=== PATIENT | female | born 1965 | race Asian ===

== ENCOUNTER 2019-02-04 21:28 | Emergency (ER) | payer OTHER ==
[~2019-02-04] VITALS: Ht 172.7 cm; Wt 83.9 kg
[2019-02-04 21:44] VITALS: BP 149/99; Ht 172.7 cm; Wt 83.9 kg
== END 2019-02-05 00:40 | disposition home or self-care (01) ==
LOC: ED 21:28
DX: S81.851A Open bite, right lower leg, initial encounter (principal); I10 Essential (primary) hypertension; E11.9 Type 2 diabetes mellitus without complications; Z85.3 Personal history of malignant neoplasm of breast; Z90.710 Acquired absence of both cervix and uterus; W54.0XXA Bitten by dog, initial encounter; Y93.89 Activity, other specified; Y92.89 Other specified places as the place of occurrence of the external cause; Y99.8 Other external cause status
CPT/HCPCS: 90715

== ENCOUNTER 2019-02-10 18:00 | Inpatient (IN) | payer OTHER ==
[~2019-02-10] VITALS: Ht 172.7 cm; Wt 82.4 kg
[2019-02-10 18:24] VITALS: Ht 172.7 cm; Wt 82.4 kg
[2019-02-10 19:57] LABS: microscopic required? NO
[2019-02-10 20:04] LABS: BASOPHIL % 0.3 % (0-2); PLATELET COUNT 299 x10^3mcL (130-400); RED CELL DISTRIBUTION WIDTH 13.5 % (11.5-14.5)
[2019-02-10 20:05] LABS: UA SPECIFIC GRAVITY <=1.005 (1.005-1.035); urine erythrocyte NEGATIVE (NEGATIVE)
[2019-02-10 20:11] LABS: CALCIUM 10.1 mg/dL (8.5-10.1); CARBON DIOXIDE 25.5 mmol/L (21-32); CHLORIDE SERUM 100 mmol/L (98-107); CREATININE SERUM 0.9 mg/dL (0.6-1.0); GFR1 > 60 mL/min; GLUCOSE SERUM 118 mg/dL (74-106); POTASSIUM SERUM 3.7 mmol/L (3.5-5.1); SODIUM SERUM 139 mmol/L (136-145)
[2019-02-10 20:16] LABS: ALBUMIN 4.3 g/dL (3.4-5.0); ALKALINE PHOSPHATASE 121 U/L (46-116); ALT/SGPT 55 U/L (14-59); AST/SGOT 22 U/L (15-37); BILIRUBIN TOTAL 0.73 mg/dL (0.20-1.00)
[2019-02-10 20:17] LABS: TOTAL PROTEIN, SERUM 8.4 g/dL (6.4-8.2)
[2019-02-10 21:18] LABS: PHOSPHOROUS 4.3 mg/dL (2.5-4.9)
[2019-02-10 21:19] LABS: CHOLESTEROL/HDL RATIO 4.4
[2019-02-10 21:45] VITALS: BP 161/79
[2019-02-10] MEDS ORDERED: METFORMIN HCL1000 MG PO (22:37)
[2019-02-10] MEDS ORDERED: GLIPIZIDE2.5 M1 PO (22:47)
[2019-02-10] MEDS ORDERED: LOSARTAN POTASS50 M1 PO (22:47)
[2019-02-10] MEDS ORDERED: VENLAFAXINE HYD75 MG PO (22:48)
[2019-02-10] MEDS ORDERED: SIMVASTATIN10 M1 PO (22:48)
[2019-02-10] MEDS ORDERED: LEVOTHYROXINE0.1 M2 PO (22:49)
[2019-02-10] MEDS ORDERED: NOR5 PO (22:49)
[2019-02-11] VITALS (7 sets, daily range): BP systolic 120–148; BP diastolic 71–101
[2019-02-11 07:13] LABS: BASOPHIL % 0.5 % (0-2); PLATELET COUNT 278 x10^3mcL (130-400); RED CELL DISTRIBUTION WIDTH 13.6 % (11.5-14.5)
[2019-02-11 07:40] LABS: CALCIUM 9.3 mg/dL (8.5-10.1); CARBON DIOXIDE 25.2 mmol/L (21-32); CHLORIDE SERUM 104 mmol/L (98-107); CREATININE SERUM 0.8 mg/dL (0.6-1.0); GFR1 > 60 mL/min; GLUCOSE SERUM 118 mg/dL (74-106); POTASSIUM SERUM 3.5 mmol/L (3.5-5.1); SODIUM SERUM 141 mmol/L (136-145)
[2019-02-12 05:48] VITALS: BP 123/74
[2019-02-12 06:25] LABS: BASOPHIL % 0.4 % (0-2); PLATELET COUNT 297 x10^3mcL (130-400); RED CELL DISTRIBUTION WIDTH 13.9 % (11.5-14.5)
[2019-02-12 06:37] LABS: CALCIUM 9.4 mg/dL (8.5-10.1); CARBON DIOXIDE 25.4 mmol/L (21-32); CHLORIDE SERUM 101 mmol/L (98-107); CREATININE SERUM 0.8 mg/dL (0.6-1.0); GFR1 > 60 mL/min; GLUCOSE SERUM 118 mg/dL (74-106); PHOSPHOROUS 4.5 mg/dL (2.5-4.9); POTASSIUM SERUM 3.6 mmol/L (3.5-5.1); SODIUM SERUM 139 mmol/L (136-145)
[2019-02-12 09:48] VITALS: BP 117/67
[2019-02-12 16:31] VITALS: BP 126/84
[2019-02-12 20:57] VITALS: BP 125/85
[2019-02-13 05:10] VITALS: BP 121/70
[2019-02-13 07:38] LABS: BASOPHIL % 0.6 % (0-2); PLATELET COUNT 332 x10^3mcL (130-400); RED CELL DISTRIBUTION WIDTH 13.7 % (11.5-14.5)
[2019-02-13 07:51] LABS: CALCIUM 9.8 mg/dL (8.5-10.1); CARBON DIOXIDE 22.3 mmol/L (21-32); CHLORIDE SERUM 101 mmol/L (98-107); CREATININE SERUM 0.8 mg/dL (0.6-1.0); GFR1 > 60 mL/min; GLUCOSE SERUM 111 mg/dL (74-106); POTASSIUM SERUM 3.7 mmol/L (3.5-5.1); SODIUM SERUM 137 mmol/L (136-145)
[2019-02-13 09:00] VITALS: BP 126/77
[2019-02-13] MEDS ORDERED: CLEOCIN HCL300 MG PO (13:42)
[2019-02-13 13:57] VITALS: BP 126/77
== END 2019-02-13 15:20 | disposition home or self-care (01) | DRG 383 ==
LOC: ED 18:00 → MU 20:44
PROVIDERS: Emergency Medicine; Internal Medicine; ADMIT Family Medicine
DX: L03.115 Cellulitis of right lower limb (principal); E11.65 Type 2 diabetes mellitus with hyperglycemia; S81.851A Open bite, right lower leg, initial encounter; I10 Essential (primary) hypertension; E78.5 Hyperlipidemia, unspecified; R74.0 Nonspecific elevation of levels of transaminase and lactic acid dehydrogenase [LDH]; E03.9 Hypothyroidism, unspecified; W54.0XXD Bitten by dog, subsequent encounter; Y93.89 Activity, other specified; Y92.89 Other specified places as the place of occurrence of the external cause; Z85.3 Personal history of malignant neoplasm of breast; Z92.21 Personal history of antineoplastic chemotherapy; Z92.3 Personal history of irradiation; Z68.27 Body mass index [BMI] 27.0-27.9, adult; Z90.710 Acquired absence of both cervix and uterus; Z83.3 Family history of diabetes mellitus
CPT/HCPCS: 82962; J1644; J2543; J3370; J3490; J7030; J7050; Q0092; Q0163

== ENCOUNTER 2019-06-07 18:58 | Emergency (ER) | payer OTHER ==
[~2019-06-07] VITALS: Ht 172.7 cm; Wt 81.2 kg
[~2019-06-07 18:58] MED LIST: CLEOCIN HCL300 MG PO; GLIPIZIDE2.5 M1 PO; LEVOTHYROXINE0.1 M2 PO; LOSARTAN POTASS50 M1 PO; METFORMIN HCL1000 MG PO; NOR5 PO; SIMVASTATIN10 M1 PO; VENLAFAXINE HYD75 MG PO
[2019-06-07 19:13] VITALS: Ht 172.7 cm; Wt 81.2 kg
[2019-06-07 21:38] VITALS: BP 150/76
== END 2019-06-07 21:38 | disposition home or self-care (01) ==
LOC: ED 18:58
DX: J06.9 Acute upper respiratory infection, unspecified (principal); I10 Essential (primary) hypertension; E11.9 Type 2 diabetes mellitus without complications; Z85.3 Personal history of malignant neoplasm of breast; Z90.710 Acquired absence of both cervix and uterus

== ENCOUNTER 2019-09-24 19:22 | Emergency (ER) | payer OTHER ==
[~2019-09-24] VITALS: Ht 172.7 cm; Wt 81.6 kg
[2019-09-24 19:49] VITALS: Ht 172.7 cm; Wt 81.6 kg
[2019-09-24 23:20] VITALS: BP 140/85
== END 2019-09-24 23:20 | disposition home or self-care (01) ==
LOC: ED 19:22
DX: N61.0 Mastitis without abscess (principal); I10 Essential (primary) hypertension; E11.9 Type 2 diabetes mellitus without complications; Z88.1 Allergy status to other antibiotic agents
CPT/HCPCS: J2001; Q0092